=== PATIENT | male | born 1985 | race Hispanic/Latino ===

== ENCOUNTER 2020-07-16 12:38 | Emergency (ER) | payer OTHER, SELFPAY ==
--- NOTE | ~2020-07-16 | XR_ITS ---
XR foot RT min 3V DATE: 07/16/2020 13:15 INDICATION: Drop generated on first toe. First toe pain. TECHNIQUE: 5 views COMPARISON: None FINDINGS: No fracture or dislocation, periosteal reaction or bone destruction. IMPRESSION: Negative Reviewed, dictated and finalized at location B. IMPRESSION: Negative
[2020-07-16 12:45] VITALS: BP 138/78; PULSE 81; RESP 16; TEMP 35.9; O2SAT 100
--- NOTE | 2020-07-16 13:12 | ED.GENADULT ---
HPI - General Adult General Chief complaint: Wound/Laceration Stated complaint: BROKEN TOE Time Seen by Provider: 07/16/20 12:48 Source: patient Mode of arrival: ambulatory Limitations: no limitations History of Present Illness HPI narrative: Patient is a 34-year-old male who presents to emergency department for evaluation of right great toe pain after dropping an object on it where he sustained an abrasion to the dorsal surface of the toe and has since had moderate aching pain worse with weightbearing and activity denies other injuries or complaints Related Data Home Medications Medication Instructions Recorded Confirmed Unable to Obtain Home Medications 07/16/20 07/16/20 Allergies Allergy/AdvReac Type Severity Reaction Status Date / Time No Known Allergies Allergy Verified 07/16/20 12:45 Review of Systems Review of Systems: All systems reviewed & are unremarkable except as noted in HPI and below PMFSH Social History Social History (Updated 07/16/20 @ 13:14 by Dell Fuller PA-C) Smoking status: Never smoker Gender identity (if verbalized by the patient): Male Exam Narrative: Exam Narrative: GENERAL: Well-appearing, well-nourished, and in no acute distress. HEAD: Normocephalic, atraumatic. EYES: PERRLA and EOMI. ENT: Nares clear, no rhinorrhea or epistaxis. Mucous membranes moist. EXTREMITIES: Normal range of motion. No edema. Abrasion and tenderness to the dorsal surface of the right great toe no other deformities SKIN: Warm, dry, no rash. NEURO: No focal deficits. Alert and oriented x3. Neurovascularly intact. Capillary refill less than 2 seconds PSYCH: Normal mood and affect. Course Course Emergency Course: Patient in the room in no distress aware of case findings treatment plan and diagnosis Vital Signs Vital signs: Vital Signs Temperature 96.7 F L 07/16/20 12:45 Pulse Rate 81 07/16/20 12:45 Respiratory Rate 16 07/16/20 12:45 Blood Pressure 138/78 07/16/20 12:45 Pulse Oximetry 100 07/16/20 12:45 Temperature 96.7 F L 07/16/20 12:45 Pulse Rate 81 07/16/20 12:45 Respiratory Rate 16 07/16/20 12:45 Blood Pressure 138/78 07/16/20 12:45 Pulse Oximetry 100 07/16/20 12:45 Medical Decision Making MDM Narrative Medical decision making narrative: Patients injury or pain is consistent with musculoskeletal etiology. No signs of neurological or vascular compromise on exam. Compartments and tisues are soft without signs of compartment syndrome. Pain is felt appropriate for further evaluation on an outpatient basis. Vital Signs Vital Signs: Vital Signs Temperature 96.7 F L 07/16/20 12:45 Pulse Rate 81 07/16/20 12:45 Respiratory Rate 16 07/16/20 12:45 Blood Pressure 138/78 07/16/20 12:45 Pulse Oximetry 100 07/16/20 12:45 Temperature 96.7 F L 07/16/20 12:45 Pulse Rate 81 07/16/20 12:45 Respiratory Rate 16 07/16/20 12:45 Blood Pressure 138/78 07/16/20 12:45 Pulse Oximetry 100 07/16/20 12:45 Discharge Plan Discharge Clinical Impression: Contusion of right great toe without damage to nail Patient Disposition: Home, Self-Care Condition: Stable Instructions: Antibiotic Form, Foot Contusion (ED) Additional Instructions: Limited weight on the affected leg until able to bear weight without pain. Ice and elevate extremity. Pain medication as needed and directed. Follow up with your doctor for further care in the next 7 days. Return if symptoms worsen or concerns or any increase in redness swelling pain or fever over 100.5 Prescriptions: No Action Unable to Obtain Home Medications RF: 0 Follow-up/Referrals: [facility] [Primary Care Provider] - Stand Alone Forms: Work/School Release IP
[2020-07-16 14:05] VITALS: PULSE 70; RESP 14
== END 2020-07-16 14:06 | disposition home or self-care (01) ==
PROVIDERS: Emergency Provider Emergency Medicine
DX: S90.111A Contusion of right great toe without damage to nail, initial encounter (principal); W20.8XXA Other cause of strike by thrown, projected or falling object, initial encounter
CPT/HCPCS: 73630; 99283